=== PATIENT | female | born 1970 | race Caucasian/White ===

== ENCOUNTER 2021-03-15 20:14 | Emergency (ER) | payer MEDICARE, OTHER | END 2021-03-15 20:35 | disposition home or self-care (01) | LOC: NAV ERS 20:14 | DX: S61.012A Laceration without foreign body of left thumb without damage to nail, initial encounter (principal); E03.9 Hypothyroidism, unspecified; W45.8XXA Other foreign body or object entering through skin, initial encounter | CPT/HCPCS: 12001 ==